=== PATIENT | female | born 1990 | race American Indian/Alaskan Native ===

== ENCOUNTER 2017-10-14 10:38 | Emergency (ER) | payer MEDICAID ==
--- NOTE | 2017-10-14 11:20 | Emergency Department Report ---
ED General Adult HPI - General Chief complaint: Back Pain/Injury Stated complaint: BACK/CHEST PAIN Time Seen by Provider: 10/14/17 10:56 Source: patient Mode of arrival: Ambulatory Limitations: No Limitations - History of Present Illness Initial comments: Patient is 27 years old female 1 para 0. Patient stated that she is demented herself to be 9 weeks. Patient stated that she had a urine test but normal blood tests or ultrasound done in no care so far. Patient presented to the ER complaining off back pain that radiated down to her groin area associated with his cramping but no vaginal bleeding or vaginal discharge. Patient denied any fever, vomiting or diarrhea. - Related Data Allergies Allergy/AdvReac Type Severity Reaction Status Date / Time moustapha Allergy Itching Verified 10/14/17 10:43 amoxicillin AdvReac Nausea Verified 10/14/17 10:43 ED Review of Systems ROS: Stated complaint: BACK/CHEST PAIN Other details as noted in HPI Comment: All other systems reviewed and negative Constitutional: denies: chills, fever Cardiovascular: denies: chest pain, palpitations, dyspnea on exertion, orthopnea Gastrointestinal: abdominal pain, nausea. denies: vomiting, diarrhea, constipation, hematemesis, melena, hematochezia Musculoskeletal: back pain ED Past Medical Hx - Past Medical History Previous Medical History?: No - Surgical History Past Surgical History?: No - Social History Smoking Status: Never Smoker Substance Use Type: None ED Physical Exam - General Limitations: No Limitations General appearance: alert, in no apparent distress - Head Head exam: Present: atraumatic, normocephalic, normal inspection - Eye Eye exam: Present: normal appearance - ENT ENT exam: Present: normal exam - Neck Neck exam: Present: normal inspection, full ROM. Absent: tenderness, meningismus, lymphadenopathy, thyromegaly - Respiratory Respiratory exam: Present: normal lung sounds bilaterally. Absent: respiratory distress, wheezes, rales, rhonchi, stridor, chest wall tenderness, accessory muscle use, decreased breath sounds, prolonged expiratory - Cardiovascular Cardiovascular Exam: Present: regular rate, normal rhythm, normal heart sounds - GI/Abdominal GI/Abdominal exam: Present: soft, normal bowel sounds. Absent: distended, tenderness, guarding, rebound, rigid, organomegaly, mass, bruit, pulsatile mass , hernia - Extremities Exam Extremities exam: Present: normal inspection, full ROM, normal capillary refill. Absent: tenderness, pedal edema, joint swelling, calf tenderness - Back Exam Back exam: Present: normal inspection, full ROM. Absent: tenderness, CVA tenderness (R), muscle spasm, paraspinal tenderness, vertebral tenderness, rash noted - Neurological Exam Neurological exam: Present: alert, oriented X3, CN II-XII intact, normal gait, reflexes normal - Skin Skin exam: Present: warm, intact, normal color ED Course Vital Signs 10/14/17 10:43 Temperature 98.4 F Pulse Rate 80 Respiratory 18 Rate Blood Pressure 148/94 O2 Sat by Pulse 98 Oximetry ED Medical Decision Making - Lab Data Result diagrams: 10/14/17 11:23 10/14/17 11:23 - Radiology Data Radiology results: report reviewed Referring Physician: KING MIRZA Patient Name: JOHN SAENZ Date of : 1990 Sex: Female Report Date: 2017-10-14 Report Status: [place] [address] Ultrasound Report Signed Patient: JOHN SAENZ MR#: [id number] : 1990 Acct:[id number] Age/Sex: 27 / F ADM Date: 10/14/17 Loc: ED Attending Dr: Ordering Physician: KING MIRZA Date of Service: 10/14/17 Procedure(s): US OB transvaginal Accession Number(s): [id number] cc: KING MIRZA FINAL REPORT EXAM: US OB TRANSVAGINAL HISTORY: abdominal pain: 9 weeks TECHNIQUE: Ob ultrasound evaluation of the pelvis using TRANSVAGINAL technique PRIORS: Transabdominal Ob ultrasound 10/14/2017 FINDINGS: A gestational sac is present in the endometrial cavity containing a pole. viability is documented with evidence of cardiac activity. pole crown-rump length: 31.5 mm heart rate: 167 beats per minute Average estimated gestational age by ultrasound: 10 weeks 0 days Estimated delivery date: 05/12/2018 The uterine echotexture is homogenous and without evidence of mass. No evidence of subchorionic hemorrhage. The adnexa are normal. There is no cul-de-sac free fluid. Nonspecific slightly hypoechoic lesion in the right ovary measures 19 mm. This may be a corpus luteum. IMPRESSION: Single viable intrauterine with the above parameters Transcribed By: BAL Dictated By: JO GARCIA MD Electronically Authenticated By: JO GARCIA MD Signed Date/Time: 10/14/171346 DD/ 46 TD/TT: 10/14/171346 Critical care attestation.: If time is entered above; I have spent that time in minutes in the direct care of this critically ill patient, excluding procedure time. ED Disposition Clinical Impression: Abdominal pain affecting , UTI (urinary tract infection) Disposition: - TO HOME OR SELFCARE Is pt being admited?: No Condition: Stable Instructions: Abdominal Pain in (ED), Urinary Tract Infection in Women (ED) Referrals: PRIMARY CARE, [Primary Care Provider] - 3-5 Days
[2017-10-14 11:46] LABS: Basophils % (Auto) 0.8 % (0.0-1.8); Eosinophils % (Auto) 0.2 % (0.0-4.3); Hematocrit 39.2 % (30.3-42.9); Lymphocytes # (Auto) 0.8 K/mm3 (1.2-5.4); Lymphocytes % (Auto) 27.5 % (13.4-35.0); Mean Corpuscular HGB Conc 33 % (30-34); Mean Corpuscular Hemoglobin 29 pg (28-32); Mean Corpuscular Volume 86 fl (79-97); Monocytes # (Auto) 0.5 K/mm3 (0.0-0.8); Monocytes % (Auto) 15.9 % (0.0-7.3); Platelet Count 199 K/mm3 (140-440); Red Blood Count 4.58 M/mm3 (3.65-5.03); Red Cell Distribution Width 13.4 % (13.2-15.2)
[2017-10-14 11:53] LABS: Bacteria,Urine 1+ /HPF (Negative); Bilirubin,Urine NEG (Negative); Blood,Urine NEG (Negative); Color,Urine Amber (Yellow); Mucus,Urine 3+ /HPF
[2017-10-14 11:59] LABS: BUN/Creatinine Ratio 13; Blood Urea Nitrogen 9 mg/dL (7-17); Calcium 9.2 mg/dL (8.4-10.2); Hemolysis Index 15
--- NOTE | 2017-10-14 13:52 | Ultrasound Report ---
FINAL REPORT EXAM: US OB TRANSVAGINAL HISTORY: abdominal pain: 9 weeks TECHNIQUE: Ob ultrasound evaluation of the pelvis using TRANSVAGINAL technique PRIORS: Transabdominal Ob ultrasound 10/14/2017 FINDINGS: A gestational sac is present in the endometrial cavity containing a pole. viability is documented with evidence of cardiac activity. pole crown-rump length: 31.5 mm heart rate: 167 beats per minute Average estimated gestational age by ultrasound: 10 weeks 0 days Estimated delivery date: 05/12/2018 The uterine echotexture is homogenous and without evidence of mass. No evidence of subchorionic hemorrhage. The adnexa are normal. There is no cul-de-sac free fluid. Nonspecific slightly hypoechoic lesion in the right ovary measures 19 mm. This may be a corpus luteum. IMPRESSION: Single viable intrauterine with the above parameters
--- NOTE | 2017-10-14 13:57 | Ultrasound Report ---
FINAL REPORT EXAM: US OB < = 14 WEEKS FETUS HISTORY: abdominal pain: 9 weeks TECHNIQUE: Ultrasound evaluation of the gravid uterus PRIORS: Transvaginal Ob ultrasound 10/14/2017 FINDINGS: A gestational sac is present in the endometrial cavity containing a pole. viability is documented with evidence of cardiac activity. pole crown-rump length: 31.5 mm heart rate: 167 and 168 beats per minute Average estimated gestational age by ultrasound: 10 weeks 0 days Estimated delivery date: 05/12/2018 The uterine echotexture is homogenous and without evidence of mass. No evidence of subchorionic hemorrhage. The adnexa are normal. There is no cul-de-sac free fluid. Nonspecific slightly hypoechoic lesion in the right ovary measures 19 mm, visible on comparison endovaginal imaging. This may be a corpus luteum. IMPRESSION: Single viable early intrauterine with the above parameters
[2017-10-14 15:00] VITALS: BP 134/72
== END 2017-10-14 14:58 | disposition home or self-care (01) ==
LOC: ED 10:38
DX: O23.41 Unspecified infection of urinary tract in pregnancy, first trimester (principal); Z3A.10 10 weeks gestation of pregnancy; Z88.1 Allergy status to other antibiotic agents; Z91.018 Allergy to other foods
CPT/HCPCS: 36415; 76801; 76817; 80048; 81001; 84702; 85025; 86900; 86901; 99284

== ENCOUNTER 2017-11-05 20:42 | Emergency (ER) | payer OTHER ==
[2017-11-05 21:49] LABS: Basophils % (Auto) 0.3 % (0.0-1.8); Eosinophils % (Auto) 0.1 % (0.0-4.3); Hematocrit 34.2 % (30.3-42.9); Hemoglobin 12.3 gm/dl (10.1-14.3); Lymphocytes # (Auto) 0.9 K/mm3 (1.2-5.4); Lymphocytes % (Auto) 15.8 % (13.4-35.0); Mean Corpuscular HGB Conc 36 % (30-34); Mean Corpuscular Hemoglobin 30 pg (28-32); Mean Corpuscular Volume 84 fl (79-97); Monocytes # (Auto) 0.6 K/mm3 (0.0-0.8); Platelet Count 194 K/mm3 (140-440); Red Blood Count 4.08 M/mm3 (3.65-5.03); Red Cell Distribution Width 13.7 % (13.2-15.2)
[2017-11-05 22:48] LABS: Bilirubin,Urine SM (Negative); Blood,Urine NEG (Negative); Color,Urine Amber (Yellow); Mucus,Urine 3+ /HPF
[2017-11-05 23:06] LABS: Ictotest,Urine Negative (Negative)
--- NOTE | 2017-11-06 01:43 | Emergency Department Report ---
ED HPI - General Chief complaint: Abdominal Pain Stated complaint: 12 WKS WITH ABD PAIN Time Seen by Provider: 11/06/17 01:33 Source: patient Mode of arrival: Ambulatory Limitations: No Limitations - History of Present Illness Initial comments: 27-year-old 12 week female presents with upper abdominal discomfort starting approximately 30-60 minutes after eating a hot dog for lunch 8 hours prior to arrival. Discomfort was initially crampy, achy, localized in the epigastrium, without radiation, moderate intensity, 5-6 out of 10. Seems a bit aggravated by her meal, not relieved by any particular measures, and has begun to subside spontaneously. She had some belching along with it, no nausea or vomiting, no fever or chills, and no lower abdominal discomfort, and thinks that she may simply had some indigestion, but wanted to get checked out to be sure that there was no problems with the . She has not had any symptoms of contractions, no flank pain, no lower back pain, no difficulty with urination, and at time of examination, all of patient's pain has subsided and she is resting comfortably. - Related Data Previous Rx's Medication Instructions Recorded Last Taken Type Nitrofurantoin [place]/M-Cryst 100 mg PO Q12HR #14 capsule 10/14/17 Unknown Rx [Macrobid CAP] Ondansetron [Zofran Odt] 4 mg PO Q8HR PRN #20 tab.rapdis 10/14/17 Unknown Rx Vit Calc,Iron,Folic 1 each PO DAILY #30 tablet 10/14/17 Unknown Rx [ Vitamins] Allergies Allergy/AdvReac Type Severity Reaction Status Date / Time moustapha Allergy Itching Verified 10/14/17 10:43 amoxicillin AdvReac Nausea Verified 10/14/17 10:43 ED Review of Systems ROS: Stated complaint: 12 WKS WITH ABD PAIN Other details as noted in HPI Comment: All other systems reviewed and negative Constitutional: denies: chills, fever Respiratory: denies: cough, shortness of breath, wheezing Cardiovascular: denies: chest pain, palpitations Endocrine: no symptoms reported Gastrointestinal: abdominal pain (in epigastrium, achy and crampy). denies: nausea, vomiting, diarrhea Genitourinary: denies: urgency, dysuria Musculoskeletal: denies: back pain, joint swelling, arthralgia Neurological: denies: headache, weakness, paresthesias ED Past Medical Hx - Past Medical History Previous Medical History?: No - Surgical History Past Surgical History?: No - Social History Smoking Status: Never Smoker Substance Use Type: None - Medications Home Medications: Home Medications Medication Instructions Recorded Confirmed Last Taken Type Nitrofurantoin [place]/M-Cryst 100 mg PO Q12HR #14 capsule 10/14/17 Unknown Rx [Macrobid CAP] Ondansetron [Zofran Odt] 4 mg PO Q8HR PRN #20 tab.rapdis 10/14/17 Unknown Rx Vit Calc,Iron,Folic 1 each PO DAILY #30 tablet 10/14/17 Unknown Rx [ Vitamins] ED Physical Exam - General Limitations: No Limitations General appearance: alert, in no apparent distress - Head Head exam: Present: atraumatic, normocephalic - ENT ENT exam: Present: normal exam, mucous membranes moist - Neck Neck exam: Present: normal inspection, full ROM. Absent: tenderness - Respiratory Respiratory exam: Present: normal lung sounds bilaterally. Absent: respiratory distress, wheezes, rales, rhonchi - Cardiovascular Cardiovascular Exam: Present: regular rate, normal heart sounds - GI/Abdominal GI/Abdominal exam: Present: soft, normal bowel sounds, other (gravid, midway below level of umbilicus). Absent: tenderness, guarding, rebound - Rectal Rectal exam: Present: deferred - Extremities Exam Extremities exam: Present: normal inspection, full ROM. Absent: tenderness, pedal edema - Back Exam Back exam: Present: normal inspection. Absent: tenderness, CVA tenderness (R), CVA tenderness (L) - Neurological Exam Neurological exam: Present: alert, oriented X3, CN II-XII intact. Absent: motor sensory deficit - Skin Skin exam: Present: warm, dry, intact ED Course Vital Signs 11/05/17 20:45 Temperature 36.9 C Pulse Rate 83 Respiratory 18 Rate Blood Pressure 170/97 O2 Sat by Pulse 96 Oximetry ED Medical Decision Making - Lab Data Result diagrams: 11/05/17 21:28 - Radiology Data interpreted by me: Transabdominal ultrasound shows presence of fetus, within normal-appearing uterus with normal amount of amniotic fluid, no evidence of bleeding, heart rate noted at 152 and one projection, and 166 bpm and other production. Unremarkable examination - Medical Decision Making Patient had an isolated episode of dyspepsia after eating a hot dog, which has subsided by the time of examination, patient is feeling back to baseline, has an unremarkable urinalysis, which likely shows mild contamination, benign examination, and on my examination abdominal ultrasound is unremarkable, showing normal heart tones, normal fetus, no evidence of hemorrhage or free fluid. Critical Care Time: No Critical care attestation.: If time is entered above; I have spent that time in minutes in the direct care of this critically ill patient, excluding procedure time. ED Disposition Clinical Impression: Dyspepsia Qualifiers: Weeks of gestation: 12 weeks Qualified Code(s): Z3A.12 - 12 weeks gestation of Disposition: TO HOME OR SELFCARE Is pt being admited?: No Does the pt Need Aspirin: No Condition: Stable Instructions: Chronic Indigestion (ED) Additional Instructions: We recommend eating a bland diet, limiting her intake of fatty foods such as hot dogs, if he have recurrent episodes such as tonight, during her . Have recheck with your Dr. Calix as routinely scheduled. Recheck if you have any recurrent symptoms. Referrals: PRIMARY CARE, [Referring] - 3-5 Days Time of Disposition: 01:46
[2017-11-06 02:09] VITALS: BP 126/84
--- NOTE | 2017-11-06 02:39 | Ultrasound Report ---
FINAL REPORT PROCEDURE: US OB < = 14 WEEKS FETUS TECHNIQUE: Real-time transabdominal sonography of the uterus, placenta, amniotic fluid, adnexa, and fetus was performed with image documentation. Measurements were obtained to determine age/size. M-mode Doppler was used to document heartbeat. CPT 88903 HISTORY: 12 weeks gest abd pain COMPARISON: No prior studies are available for comparison. FINDINGS: CRL: 70.9 mm, which corresponds to a gestational age of: 13 weeks, 2 days. Yolk Sac: Normal. Embryonic Cardiac Activity: 166 beats per minute Gestational Sac: Normal. Amniotic fluid: Normal. Cervix: Normal. Right Ovary: Normal. Left Ovary: Normal. Estimated delivery date: 05/12/2018 Uterus and adnexa: Normal. IMPRESSION: Single live intrauterine gestation at approximately 13 weeks and 2 days. EDC by US 05/12/2018
== END 2017-11-06 02:10 | disposition home or self-care (01) ==
LOC: ED 20:42
DX: O26.891 Other specified pregnancy related conditions, first trimester (principal); R10.13 Epigastric pain; Z3A.12 12 weeks gestation of pregnancy; Z88.1 Allergy status to other antibiotic agents; Z91.02 Food additives allergy status; Z79.899 Other long term (current) drug therapy
CPT/HCPCS: 36415; 76801; 81001; 84702; 85025

== ENCOUNTER 2018-04-26 10:40 | Inpatient (IN) | payer OTHER ==
[2018-04-26] MEDS ORDERED: NARCAN 0.4 MG/1 ML IV PRN (11:36)
[2018-04-26] MEDS ORDERED: STADOL IV PRN (11:36)
[2018-04-26] MEDS ORDERED: BRETHINE SUB-Q PRN (11:36)
[2018-04-26] MEDS ORDERED: PHENERGAN PR PRN (11:36)
[2018-04-26] MEDS ORDERED: AMPICILLIN/NS 2 GM/100 ML 2 GM/100 ML BAG IV ONE (11:36)
[2018-04-26] MEDS ORDERED: XYLOCAINE 2% INFILTRATI ONE ×2 (11:36→22:47)
[2018-04-26] MEDS ORDERED: BRETHINE IVP PRN (11:36)
[2018-04-26] MEDS ORDERED: MINERAL OIL PO PRN ×2 (11:36→22:47)
[2018-04-26] MEDS ORDERED: ZOFRAN IV PRN (11:36)
--- NOTE | 2018-04-26 11:44 | History and Physical Report ---
History of Present Illness Date of examination: 04/26/18 Date of admission: 04/26/18 10:40 Chief complaint: recommended IOl for PIH ( mild) History of present illness: This is a 28 yo G [id number] at 37+3 weeks was admitted for IOL secondary to PIH recommneded by [facility]. patient is a patient of [facility] and established care at 10 weeks. She is morbidly obese, rubella non immune, GBS + LGSIL 6 weeks PP f/u. GHTN on aldomet 500 mg bid. patient has been non compliant and recommended delivery today. Past History Past Medical History: no pertinent history Past Surgical History: no surgical history Family/Genetic History: none Social history: single - Obstetrical History Expected Date of Delivery: 05/14/18 Actual Gestation: 37 Week(s) 3 Day(s) : 2 Para: 0 Hx # Term Pregnancies: 0 Number of Pregnancies: 0 Spontaneous Abortions: 0 Induced : 1 Number of Living Children: 0 Medications and Allergies Allergies Allergy/AdvReac Type Severity Reaction Status Date / Time moustapha Allergy Itching Verified 10/14/17 10:43 amoxicillin AdvReac Nausea Verified 10/14/17 10:43 Home Medications Medication Instructions Recorded Confirmed Last Taken Type Nitrofurantoin [place]/M-Cryst 100 mg PO Q12HR #14 capsule 10/14/17 Unknown Rx [Macrobid CAP] Ondansetron [Zofran Odt] 4 mg PO Q8HR PRN #20 tab.rapdis 10/14/17 Unknown Rx Vit Calc,Iron,Folic 1 each PO DAILY #30 tablet 10/14/17 Unknown Rx [ Vitamins] Review of Systems All systems: negative - Vital Signs Vital signs: Vital Signs Pulse Pulse Ox 89 99 04/26/18 11:32 04/26/18 11:32 Temp Pulse Resp BP Pulse Ox 78 136/87 99 04/26/18 11:37 04/26/18 11:36 04/26/18 11:37 - Physical Exam Breasts: Positive: normal Cardiovascular: Regular rate, Normal S1 Lungs: Positive: Clear to auscultation, Normal air movement Abdomen: Positive: normal appearance, soft, normal bowel sounds. Negative: distention, tenderness, guarding Genitourinary (Female): Positive: normal external genitalia, normal perenium Vulva: both: normal Vagina: Positive: normal moisture Uterus: Positive: normal size, normal contour Anus/Rectum: Positive: normal perianal skin Extremities: Positive: normal Deep Tendon Reflex Grade: Normal +2 - Obstetrical FHR: category 1 Cervical Dilatation: 1 Cervical Effacement Percentage: 60 station: -3 Uterine Contraction Pattern: Irregular Uterine Tone Measurement Phase: Contraction Uterine Contraction Intensity: Mild Results All other labs normal. Assessment and Plan A/P HD#1 Mild preeclampsia IOL with cervidil offer epidural close monitor of VS PIH labs expect vaginal delivery
[2018-04-26] MEDS ORDERED: PITOCin/NS 30 UNIT/500ML 30 UNITS/500 ML BAG IV SCH ×3 (12:00→23:00)
[2018-04-26] MEDS ORDERED: PITOCin/NS 20 UNIT/1000ML DRIP 20 UNITS/1,000 ML BAG IV SCH (12:00)
[2018-04-26 13:24] LABS: Hematocrit 34.3 % (30.3-42.9); Hemoglobin 11.6 gm/dl (10.1-14.3); Mean Corpuscular HGB Conc 34 % (30-34); Mean Corpuscular Volume 85 fl (79-97); Platelet Count 219 K/mm3 (140-440); Red Blood Count 4.04 M/mm3 (3.65-5.03); Red Cell Distribution Width 13.3 % (13.2-15.2)
[2018-04-26 13:47] LABS: Alanine Aminotransferase 8 units/L (7-56); Uric Acid 3.9 mg/dL (3.5-7.6)
[2018-04-26] MEDS ORDERED: CERVIDIL VG ONE (18:18)
[2018-04-26 18:20] LABS: Bacteria,Urine 1+ /HPF (Negative); Bilirubin,Urine NEG (Negative); Blood,Urine NEG (Negative); Color,Urine Yellow (Yellow); Protein,Urine <15 mg/dL mg/dL (Negative); Urobilinogen,Urine < 2.0 mg/dL (<2.0)
[2018-04-26] MEDS: SUBLIMAZE IV PRN (22:35)
[2018-04-26] MEDS: LACTATED RINGERS 1,000 ML IV SCH (22:35)
[2018-04-26 23:37] LABS: Hematocrit 32.9 % (30.3-42.9); Hemoglobin 11.3 gm/dl (10.1-14.3)
[2018-04-26] MEDS: CLEOCIN 900 MG/50 mL 900 MG/50 ML BAG IV SCH (23:58)
[2018-04-27] MEDS ORDERED: AMBIEN PO PRN ×2 (01:01→01:03)
--- NOTE | 2018-04-27 08:28 | Progress Note ---
Assessment and Plan - Patient Problems (1) Preeclampsia Current Visit: Yes Status: Acute Plan to address problem: initiate pitocin Subjective - Subjective Date of service: 04/27/18 Interval history: Patient undergoing induction. Cervidil being removed. Will initiate pitocin Patient reports: movement normal, contractions Objective - Vital Signs Vital Signs: Vital Signs - 12hr 04/26/18 04/26/18 04/26/18 20:31 21:02 22:31 Pulse Rate 82 81 75 Respiratory Rate Blood Pressure 140/88 146/82 141/95 O2 Sat by Pulse Oximetry 04/26/18 04/26/18 04/26/18 22:35 23:01 23:05 Pulse Rate 77 Respiratory 18 18 Rate Blood Pressure 152/83 O2 Sat by Pulse Oximetry 04/27/18 04/27/18 04/27/18 00:31 01:01 01:31 Pulse Rate 85 77 70 Respiratory Rate Blood Pressure 142/81 145/84 146/77 O2 Sat by Pulse Oximetry 04/27/18 04/27/18 04/27/18 02:32 02:35 02:40 Pulse Rate 85 82 Respiratory 18 Rate Blood Pressure O2 Sat by Pulse 93 89 Oximetry 04/27/18 04/27/18 04/27/18 02:45 02:46 02:50 Pulse Rate 81 76 84 Respiratory Rate Blood Pressure O2 Sat by Pulse 94 94 94 Oximetry 04/27/18 04/27/18 04/27/18 02:52 02:55 02:58 Pulse Rate 79 80 79 Respiratory Rate Blood Pressure O2 Sat by Pulse 94 95 94 Oximetry 04/27/18 04/27/18 04/27/18 03:00 03:01 03:03 Pulse Rate 71 76 73 Respiratory Rate Blood Pressure 126/61 O2 Sat by Pulse 95 94 Oximetry 04/27/18 04/27/18 04/27/18 03:05 03:10 03:15 Pulse Rate 74 71 66 Respiratory Rate Blood Pressure O2 Sat by Pulse 96 93 94 Oximetry 04/27/18 04/27/18 04/27/18 03:19 03:20 03:25 Pulse Rate 73 67 73 Respiratory Rate Blood Pressure O2 Sat by Pulse 93 96 95 Oximetry 04/27/18 04/27/18 04/27/18 03:26 03:30 03:31 Pulse Rate 72 73 81 Respiratory Rate Blood Pressure 111/58 O2 Sat by Pulse 94 95 Oximetry 04/27/18 04/27/18 04/27/18 03:33 03:35 03:40 Pulse Rate 77 78 70 Respiratory Rate Blood Pressure O2 Sat by Pulse 94 95 96 Oximetry 04/27/18 04/27/18 04/27/18 03:45 03:50 03:55 Pulse Rate 72 73 74 Respiratory Rate Blood Pressure O2 Sat by Pulse 96 96 96 Oximetry 04/27/18 04/27/18 04/27/18 04:00 04:05 04:10 Pulse Rate 69 69 70 Respiratory Rate Blood Pressure O2 Sat by Pulse 96 95 96 Oximetry 04/27/18 04/27/18 04/27/18 04:15 04:20 04:25 Pulse Rate 72 66 66 Respiratory Rate Blood Pressure O2 Sat by Pulse 96 96 96 Oximetry 04/27/18 04/27/18 04/27/18 04:30 04:35 04:40 Pulse Rate 72 69 68 Respiratory Rate Blood Pressure O2 Sat by Pulse 97 97 96 Oximetry 04/27/18 04/27/18 04/27/18 04:45 04:50 04:55 Pulse Rate 66 71 66 Respiratory Rate Blood Pressure O2 Sat by Pulse 96 96 96 Oximetry 04/27/18 04/27/18 04/27/18 05:00 05:05 05:20 Pulse Rate 71 62 66 Respiratory Rate Blood Pressure O2 Sat by Pulse 97 96 98 Oximetry 04/27/18 04/27/18 04/27/18 05:25 05:30 05:35 Pulse Rate 58 L 63 61 Respiratory Rate Blood Pressure O2 Sat by Pulse 97 97 97 Oximetry 04/27/18 04/27/18 04/27/18 05:40 05:45 05:50 Pulse Rate 70 66 63 Respiratory Rate Blood Pressure O2 Sat by Pulse 98 98 98 Oximetry 04/27/18 04/27/18 04/27/18 05:55 06:00 06:05 Pulse Rate 60 61 64 Respiratory Rate Blood Pressure O2 Sat by Pulse 97 96 98 Oximetry 04/27/18 04/27/18 04/27/18 06:10 08:19 08:20 Pulse Rate 69 56 L 55 L Respiratory Rate Blood Pressure 141/82 O2 Sat by Pulse 97 95 Oximetry 04/27/18 08:24 Pulse Rate 57 L Respiratory Rate Blood Pressure O2 Sat by Pulse 94 Oximetry - Labs Labs: Abnormal Labs 04/26/18 12:42 Creatinine 0.6 L Laboratory Results - last 24 hr 04/26/18 04/26/18 04/26/18 12:42 12:42 12:42 WBC 10.1 RBC 4.04 Hgb 11.6 Hct 34.3 MCV 85 MCH 29 MCHC 34 RDW 13.3 Plt Count 219 Creatinine 0.6 L Estimated GFR > 60 Uric Acid 3.9 AST 11 ALT 8 Lactate Dehydrogenase 111 Urine Color Urine Turbidity Urine pH Ur Specific [place] Urine Protein Urine Glucose (UA) Urine Ketones Urine Blood Urine Nitrite Urine Bilirubin Urine Urobilinogen Ur Leukocyte Esterase Urine WBC (Auto) Urine RBC (Auto) U Epithel Cells (Auto) Urine Bacteria (Auto) Blood Type O POSITIVE Antibody Screen Negative 04/26/18 04/26/18 17:44 23:05 WBC RBC Hgb 11.3 Hct 32.9 MCV MCH MCHC RDW Plt Count Creatinine Estimated GFR Uric Acid AST ALT Lactate Dehydrogenase Urine Color Yellow Urine Turbidity Clear Urine pH 7.0 Ur Specific [place] 1.009 Urine Protein <15 mg/dl Urine Glucose (UA) Neg Urine Ketones Tr Urine Blood Neg Urine Nitrite Neg Urine Bilirubin Neg Urine Urobilinogen < 2.0 Ur Leukocyte Esterase Lg Urine WBC (Auto) 4.0 Urine RBC (Auto) 1.0 U Epithel Cells (Auto) 7.0 Urine Bacteria (Auto) 1+ Blood Type Antibody Screen
[2018-04-27] MEDS: CLEOCIN 900 MG/50 mL 900 MG/50 ML BAG IV SCH (08:36)
[2018-04-27] MEDS: SUBLIMAZE IV PRN (08:37)
--- NOTE | 2018-04-27 10:48 | Procedure Note ---
OB Delivery Note - Delivery Date of Delivery: 04/27/18 Surgeon: IGOR POWELL Estimated blood loss: 100cc - Vaginal Delivery presentation: vertex Intrapartum events: precipitous labor- <3hr Delivery augmentation: rupture of membranes Delivery monitor: external FHT, external uterine, internal FHT, internal uterine Route of delivery: Delivery placenta: spontaneous Delivery cord: 3 umbilical vessels Episiotomy: none Delivery laceration: 1st degree Anesthesia: none Delivery comments: Patient had a precipitous delivery of a liveborn female with apgars of 8/9 weight 5lbs 6oz. The infant delivered spontaneously in the bed. The placenta delivered intact with a 3VC. A first degree laceration was noted and left unrepaired. EBL 100ml - Infant A at 1 minute: 8 at 5 minutes: 9 Infant Gender: Female (weight 5lbs 6oz)
[2018-04-27] MEDS ORDERED: MAGNESIUM SULFATE 40GM/1000ML 40 GM/1,000 ML BAG IV SCH (11:00)
[2018-04-27] MEDS ORDERED: MAGNESIUM SULFATE 4GM/100ML 4 GM/100 ML BAG IV ONE (12:03)
[2018-04-27] MEDS: APRESOLINE IV PRN ×2 (20:37→21:46)
[2018-04-27] MEDS ORDERED: VICKS SINEX NS PRN (22:33)
[2018-04-28] MEDS: LACTATED RINGERS 1,000 ML IV SCH (03:09)
--- NOTE | 2018-04-28 08:24 | Progress Note ---
Assessment and Plan A/P PPD1 Mild preeclampsia on mag for 24hr up at 100p transfer to [facility] at 100p continue PP care Subjective - Subjective Date of service: 04/28/18 Principal diagnosis: s/p on mag for pree Interval history: This is a 28 yo G [id number] at 37+3 weeks was admitted for IOL secondary to PIH recommneded by MFM. patient is a patient of [facility] and established care at 10 weeks. She is morbidly obese, rubella non immune, GBS + LGSIL 6 weeks PP f/u. GHTN on aldomet 500 mg bid. patient has been non compliant and recommended delivery today. Patient reports: appetite normal, voiding normally, pain well controlled, flatus, ambulating normally : doing well Objective - Vital Signs Latest vital signs: Vital Signs Temp Pulse Resp BP BP Pulse Ox 04/28/18 07:54 79 140/90 04/28/18 07:24 82 135/88 97 04/28/18 05:54 72 128/77 04/28/18 05:50 97.8 F 18 04/28/18 05:44 75 138/84 04/28/18 03:23 74 104/71 04/28/18 03:22 98.1 F 16 04/27/18 23:58 98.4 F 154/81 04/27/18 23:55 74 153/81 04/27/18 22:44 82 99 04/27/18 21:54 80 164/79 04/27/18 21:46 74 176/80 04/27/18 21:45 74 176/80 04/27/18 21:42 70 175/107 04/27/18 20:54 74 173/97 04/27/18 20:37 71 171/108 04/27/18 20:36 71 171/108 04/27/18 20:14 67 171/104 04/27/18 19:56 97.3 F L 154/101 04/27/18 19:55 62 154/101 04/27/18 19:54 65 164/101 04/27/18 15:38 59 L 140/69 04/27/18 15:23 70 155/70 04/27/18 14:53 61 151/89 04/27/18 14:38 66 143/90 04/27/18 14:23 65 135/78 04/27/18 14:08 66 144/84 04/27/18 13:53 71 140/82 04/27/18 13:38 69 142/81 04/27/18 13:23 68 169/106 04/27/18 13:08 51 L 141/80 04/27/18 12:53 67 139/75 04/27/18 12:38 52 L 138/85 04/27/18 12:23 51 L 141/84 04/27/18 12:21 48 L 143/82 04/27/18 11:53 58 L 92/46 04/27/18 11:38 59 L 114/57 04/27/18 11:23 54 L 120/65 04/27/18 11:08 55 L 115/56 04/27/18 10:52 67 111/58 04/27/18 10:49 68 108/53 04/27/18 10:48 67 106/55 04/27/18 10:46 71 111/54 04/27/18 10:26 60 98 04/27/18 10:25 69 151/74 93 04/27/18 10:21 77 97 04/27/18 10:16 65 99 04/27/18 10:11 57 L 99 04/27/18 10:06 50 L 99 04/27/18 10:04 66 93 04/27/18 10:01 63 98 04/27/18 09:56 63 100 04/27/18 09:51 57 L 91 04/27/18 09:50 53 L 94 04/27/18 09:46 61 99 04/27/18 09:41 56 L 95 04/27/18 09:37 57 L 94 04/27/18 09:36 55 L 95 04/27/18 09:31 60 97 04/27/18 09:26 70 98 04/27/18 09:21 66 95 04/27/18 09:16 76 95 04/27/18 09:13 60 94 04/27/18 09:11 58 L 95 04/27/18 09:06 58 L 95 04/27/18 09:01 54 L 96 04/27/18 08:56 59 L 95 04/27/18 08:51 63 96 04/27/18 08:49 57 L 94 04/27/18 08:46 57 L 93 04/27/18 08:41 58 L 92 04/27/18 08:24 57 L 94 Intake and Output 04/27/18 04/28/18 04/28/18 23:59 07:59 15:59 Output Total 1999 999 Balance -1999 -999 Output: Urine 1999 999 Indwelling Catheter 1999 999 Other: Total, Output Amount 1999 300 - Exam Breasts: Present: normal Cardiovascular: Present: Regular rate, Normal S1 Lungs: Present: Clear to auscultation, Normal air movement Abdomen: Present: normal appearance, soft, normal bowel sounds. Absent: distention, tenderness, guarding Vulva: both: normal Uterus: Present: normal, firm, fundal height below umbilicus. Absent: bogginess Extremities: Present: normal Deep Tendon Reflex Grade: Normal +2 - Labs Labs: Abnormal lab results 04/27/18 Range/Units 19:33 Magnesium 4.30 H (1.7-2.3) mg/dL
[2018-04-28] MEDS ORDERED: BENADRYL PO PRN (12:40)
[2018-04-28] MEDS ORDERED: TORADOL IV PRN (12:40)
[2018-04-28] MEDS ORDERED: TUCKS PAD TP PRN (12:40)
[2018-04-28] MEDS ORDERED: MILK OF MAGNESIA PO PRN (12:40)
[2018-04-28] MEDS ORDERED: LANSINOH TP PRN (12:40)
[2018-04-28] MEDS ORDERED: PHENERGAN PR PRN (12:40)
[2018-04-28] MEDS ORDERED: PERCOCET 5/325 PO PRN (12:40)
[2018-04-28] MEDS ORDERED: DULCOLAX PR PRN (12:40)
[2018-04-28] MEDS ORDERED: TYLENOL PO PRN (12:40)
[2018-04-28] MEDS ORDERED: NORCO 5/325 PO PRN (12:40)
[2018-04-28] MEDS ORDERED: ZOFRAN IV PRN (12:40)
[2018-04-28] MEDS ORDERED: PHENERGAN PO PRN (12:40)
[2018-04-28] MEDS ORDERED: ANUCORT-HC PR PRN (12:40)
[2018-04-28] MEDS ORDERED: SODIUM CHLORIDE FLUSH SYRINGE 10 ML IV NR (13:00)
[2018-04-28] MEDS: IBUPROFEN PO SCH ×2 (19:03→22:29)
[2018-04-28] MEDS ORDERED: COLACE PO SCH (22:00)
[2018-04-29] MEDS: IBUPROFEN PO SCH (05:53)
--- NOTE | 2018-04-29 08:39 | Progress Note ---
Assessment and Plan A/P PPD2 Mild preeclampsia s/p mag BP 130-140/70-80s d/c home with f/u in 1 weeks for BP check Subjective - Subjective Date of service: 04/29/18 Principal diagnosis: s/p on mag for pree Interval history: This is a 28 yo G [id number] at 37+3 weeks was admitted for IOL secondary to PIH recommneded by MFM. patient is a patient of [facility] and established care at 10 weeks. She is morbidly obese, rubella non immune, GBS + LGSIL 6 weeks PP f/u. GHTN on aldomet 500 mg bid. patient has been non compliant and recommended delivery today. Patient reports: appetite normal, voiding normally, pain well controlled, flatus, ambulating normally : doing well Objective - Vital Signs Latest vital signs: Vital Signs Temp Pulse Resp BP BP BP Pulse Ox 04/29/18 04:15 98.7 F 68 18 132/77 04/29/18 00:00 98.7 F 82 18 136/88 04/28/18 23:20 98.8 F 78 16 124/42 04/28/18 16:15 98.8 F 82 20 145/92 04/28/18 14:33 98.8 F 74 16 136/76 96 04/28/18 13:56 96 H 139/93 04/28/18 13:48 98.6 F 92 H 16 124/79 96 04/28/18 10:17 83 139/71 94 04/28/18 10:16 85 96 04/28/18 09:25 68 16 136/90 96 Intake and Output 04/28/18 04/29/18 04/29/18 23:59 07:59 15:59 Intake Total 600 Balance 600 Intake: Intake, Free Water 600 - Exam Breasts: Present: normal Cardiovascular: Present: Regular rate, Normal S1 Lungs: Present: Clear to auscultation, Normal air movement Abdomen: Present: normal appearance, soft, normal bowel sounds. Absent: distention, tenderness, guarding Vulva: both: normal Uterus: Present: normal, firm, fundal height below umbilicus. Absent: bogginess, tenderness Extremities: Present: normal Deep Tendon Reflex Grade: Normal +2
--- NOTE | 2018-04-29 08:40 | Discharge Summary ---
Providers - Providers Date of Admission: 04/26/18 10:40 Date of discharge: 04/29/18 Attending physician: CARLOS SOLANO MD Primary care physician: IGOR POWELL Hospitalization Reason for admission: induction of labor, other (PIH mild) Delivery: Episiotomy: none Laceration: 1st degree Incision: normal Other procedures: none complications: none Discharge diagnosis: IUP at term delivered [place] baby: female Hospital course: Patient was admitted for IOL for PIH. She delivered a viable female via . She was given 24hr of mag. she did well PP day 2 and d/c home with f/u in clinic for BP check. Condition at discharge: Good Disposition: DC-01 TO HOME OR SELFCARE Plan - Discharge Medications Prescriptions: Ferrous Sulfate 325 mg PO BID #60 tablet. Ibuprofen [Motrin] 600 mg PO Q8H PRN #30 tablet PRN Reason: Pain oxyCODONE /ACETAMINOPHEN [Percocet 5/325] 1 tab PO Q6HR PRN #30 tablet PRN Reason: Pain - Provider Discharge Summary Additional instructions: [] Smoking cessation referral if applicable(refer to patient education folder for contact #) [] Refer to [facility] Booklet Call your doctor immediately for: * Fever > 100.5 * Heavy vaginal bleeding ( >1 pad per hour) * Severe persistent headache * Shortness of breath * Reddened, hot, painful area to leg or breast * Drainage or odor from incision. * Keep incision clean and dry at all times and follow doctor's instructions regarding bathing/showering - Follow up plan Follow up: IGOR POWELL MD [Primary Care Provider] - 7 Days
[2018-04-29] MEDS ORDERED: PRENATAL VITAMIN PO SCH (10:00)
[2018-04-29] MEDS ORDERED: BOOSTRIX IM ONE (12:40)
[2018-04-29] MEDS ORDERED: M-M-R II VACCINE SUB-Q ONE (12:40)
[2018-04-30 11:26] VITALS: BP 138/78
== END 2018-04-29 18:00 | disposition home or self-care (01) | DRG 774 ==
LOC: LD 10:40 → OB 04-28 16:15
PROVIDERS: ADMIT Obstetrics & Gynecology; ATTEND Obstetrics & Gynecology
PROC: 10E0XZZ Delivery of Products of Conception, External Approach (ICD-10-PCS; principal; 2018-04-27)
PROC: 3E0234Z Introduction of Serum, Toxoid and Vaccine into Muscle, Percutaneous Approach (ICD-10-PCS; 2018-04-29)
DX: O11.4 Pre-existing hypertension with pre-eclampsia, complicating childbirth (principal); O70.0 First degree perineal laceration during delivery; O99.214 Obesity complicating childbirth; E66.01 Morbid (severe) obesity due to excess calories; O99.824 Streptococcus B carrier state complicating childbirth; O62.3 Precipitate labor; Z3A.37 37 weeks gestation of pregnancy; Z37.0 Single live birth; Z88.1 Allergy status to other antibiotic agents; Z79.899 Other long term (current) drug therapy; Z23 Encounter for immunization
CPT/HCPCS: 36415; 59200; 81001; 82565; 83615; 83735; 84450; 84460; 84550; 85014; 85018; 85027; 86592; 86850; 86900; 86901; G0378; J0360; J0595; J2405; J2590; J3010; J3475; J7120

== ENCOUNTER 2021-04-04 15:19 | Emergency (ER) | payer SELFPAY ==
[2021-04-04] MEDS ORDERED: cloNIDine 0.2 MG TAB PO ONE (15:46)
--- NOTE | 2021-04-04 15:53 | Emergency Department Report ---
HPI - General Chief Complaint: High BP Time Seen by Provider: 04/04/21 15:34 - HPI HPI: MSE 5 The patient is a 31-year-old female presenting with chief complaint of hypertension and chest pain. The patient states her symptoms began yesterday as she noticed soreness in her left neck and shoulder. The patient initially thought she may have slept in a bad position but later she noticed soreness in the substernal chest as well. The patient states today she felt slightly dizzy while driving and eventually called EMS. Patient found to be hypertensive with a systolic of 170. The patient states EMS was going to take her to [facility] so she refused and drove herself to this ED. Patient denies shortness of breath, nausea/vomiting or diaphoresis. Patient currently denies dizziness or headache. ED Past Medical Hx - Past Medical History Hx Hypertension: No (Preeclampsia) - Surgical History Past Surgical History?: No - Family History Family history: no significant - Social History Smoking Status: Never Smoker Substance Use Type: None (Denies illicit drug use) - Medications Home Medications: Home Medications Medication Instructions Recorded Confirmed Last Taken Type Vit Calc,Iron,Folic 1 each PO DAILY #30 tablet 10/14/17 04/27/18 1 Month Ago Rx [ Vitamins] ~03/27/18 Ferrous Sulfate 325 mg PO BID #60 tablet. 04/28/18 Unknown Rx Ibuprofen [Motrin] 600 mg PO Q8H PRN #30 tablet 04/28/18 Unknown Rx oxyCODONE /ACETAMINOPHEN [Percocet 1 tab PO Q6HR PRN #30 tablet 04/28/18 Unknown Rx 5/325] amLODIPine 5 mg PO DAILY #90 tab 04/04/21 Unknown Rx ED Review of Systems ROS: Stated complaint: CHEST DISCOFORT, ELEVATED B/P Other details as noted in HPI Constitutional: denies: diaphoresis Eyes: denies: eye pain ENT: denies: throat pain Respiratory: denies: shortness of breath Cardiovascular: chest pain Endocrine: no symptoms reported Gastrointestinal: denies: nausea, vomiting Genitourinary: denies: dysuria Musculoskeletal: myalgia Neurological: denies: headache Physical Exam - Physical Exam Vital Signs: Vital Signs 04/04/21 04/04/21 04/04/21 16:34 18:17 21:01 Pulse Rate 84 89 75 Respiratory 18 18 Rate Blood Pressure 155/116 Blood Pressure 173/94 172/116 [Left] O2 Sat by Pulse 100 Oximetry Physical Exam: GENERAL: The patient is well-developed well-nourished female lying on stretcher not appearing to be in acute distress. [] HEENT: Normocephalic. Atraumatic. Extraocular motions are intact. Patient has moist mucous membranes. NECK: Supple. No meningitic signs are noted. Trachea midline CHEST/LUNGS: Clear to auscultation. There is no respiratory distress noted. HEART/CARDIOVASCULAR: Regular. There is no tachycardia. There is no gallop rub or murmur. ABDOMEN: Abdomen is soft, nontender. Patient has normal bowel sounds. There is no abdominal distention. SKIN: There is no rash. There is no edema. There is no diaphoresis. NEURO: The patient is awake, alert, and oriented. The patient is cooperative. The patient has no focal neurologic deficits. The patient has normal speech. GCS 15. Cranial nerves II through XII grossly intact MUSCULOSKELETAL: There is no CVA tenderness bilaterally. There is no evidence of acute injury. ED Medical Decision Making - Lab Data Result diagrams: 04/04/21 15:54 04/04/21 15:54 Laboratory Tests 04/04/21 04/04/21 04/04/21 15:54 15:54 15:54 WBC 3.6 L RBC 4.77 Hgb 13.4 Hct 40.2 MCV 84 MCH 28 MCHC 33 RDW 14.1 Plt Count 199 Lymph % (Auto) 26.9 [place] % (Auto) 6.4 Eos % (Auto) 0.2 Baso % (Auto) 0.8 Lymph # (Auto) 1.0 L [place] # (Auto) 0.2 Eos # (Auto) 0.0 Baso # (Auto) 0.0 Seg Neutrophils % 65.7 Seg Neutrophils # 2.4 D-Dimer Sodium 135 L Potassium 4.4 Chloride 102.0 Carbon Dioxide 22 Anion Gap 15 BUN 10 Creatinine 0.8 Estimated GFR > 60 BUN/Creatinine Ratio 13 Glucose 83 Calcium 9.6 Total Creatine Kinase 98 CK-MB (CK-2) < 1.0 CK-MB (CK-2) Rel Index 1.0 Troponin T < 0.010 TSH 0.870 Free T4 1.20 HCG, Qual 04/04/21 04/04/21 15:54 15:54 WBC RBC Hgb Hct MCV MCH MCHC RDW Plt Count Lymph % (Auto) [place] % (Auto) Eos % (Auto) Baso % (Auto) Lymph # (Auto) [place] # (Auto) Eos # (Auto) Baso # (Auto) Seg Neutrophils % Seg Neutrophils # D-Dimer 213.75 Sodium Potassium Chloride Carbon Dioxide Anion Gap BUN Creatinine Estimated GFR BUN/Creatinine Ratio Glucose Calcium Total Creatine Kinase CK-MB (CK-2) CK-MB (CK-2) Rel Index Troponin T TSH Free T4 HCG, Qual Negative - EKG Data -: EKG Interpreted by Me EKG shows normal: sinus rhythm Rate: normal - EKG Data When compared to previous EKG there are: previous EKG unavailable Interpretation: nonspecific ST-T wave lisa (T wave inversion lead III) - Radiology Data Radiology results: report reviewed (Chest x-ray), image reviewed (Chest x-ray) interpreted by me: Chest x-ray-no definite focal infiltrates, no pneumothorax [facility] [address] [place] [address] XRay Report Signed Patient: JOHN SAENZ MR#: [id number] : 1990 Acct:[id number] Age/Sex: 31 / F ADM Date: 04/04/21 Loc: [place] Attending Dr: Ordering Physician: SERAFIN SAWYER MD Date of Service: 04/04/21 Procedure(s): XR chest 1V ap Accession Number(s): [id number] cc: SERAFIN SAWYER MD Fluoro Time In Minutes: CHEST 1 VIEW 04/04/2021 5:02 PM INDICATION / CLINICAL INFORMATION: chest pain. COMPARISON: None available. FINDINGS: SUPPORT DEVICES: None. HEART / MEDIASTINUM: No significant abnormality. LUNGS / PLEURA: No significant pulmonary or pleural abnormality. No pneumothorax. ADDITIONAL FIN DINGS: No significant additional findings. IMPRESSION: 1. No acute findings. Signer Name: Bairon Farley MD Signed: 04/04/2021 5:12 PM Workstation Name: [id number] Transcribed By: TL Dictated By: Bairon Farley MD Electronically Authenticated By: Bairon Farley MD Signed Date/Time: 11/16 DD/ 10 TD/TT: Print Cancel - Differential Diagnosis Hypertensive urgency, ACS, pericarditis, GERD, PE Critical care attestation.: If time is entered above; I have spent that time in minutes in the direct care of this critically ill patient, excluding procedure time. ED Disposition Clinical Impression: Hypertension Disposition: 01 HOME / SELF CARE / HOMELESS Is pt being admited?: No Does the pt Need Aspirin: No Condition: Stable Instructions: Hypertension, Adult, Opil-mi-Purp, Managing Your Hypertension, Hypertension (ED) Additional Instructions: Return to the emergency department should you develop worsening symptoms, inability to tolerate food or liquids, high fever or any other concerns Prescriptions: amLODIPine 5 mg PO DAILY #90 tab Referrals: BEBETO DELUNA MD [Staff Physician] - 3-5 Days (Dr. Deluna is a primary physician. Please follow-up with him to be established as a patient) Time of Disposition: 21:12
[2021-04-04 16:19] LABS: Basophils % (Auto) 0.8 % (0.0-1.8); Eosinophils % (Auto) 0.2 % (0.0-4.3); Hematocrit 40.2 % (30.3-42.9); Hemoglobin 13.4 gm/dl (10.1-14.3); Lymphocytes % (Auto) 26.9 % (13.4-35.0); Mean Corpuscular HGB Conc 33 % (30-34); Mean Corpuscular Volume 84 fl (79-97); Monocytes # (Auto) 0.2 K/mm3 (0.0-0.8); Monocytes % (Auto) 6.4 % (0.0-7.3); Platelet Count 199 K/mm3 (140-440); Red Blood Count 4.77 M/mm3 (3.65-5.03); Red Cell Distribution Width 14.1 % (13.2-15.2)
[2021-04-04 16:48] LABS: BUN/Creatinine Ratio 13; Blood Urea Nitrogen 10 mg/dL (7-17); Calcium 9.6 mg/dL (8.4-10.2); Hemolysis Index 3
[2021-04-04 16:55] LABS: Free T4 (Free Thyroxine) 1.2 ng/dL (0.76-1.46)
[2021-04-04 16:57] LABS: Creatine Kinase MB < 1.0 ng/mL (0.0-4.0)
--- NOTE | 2021-04-04 17:16 | XRay Report ---
CHEST 1 VIEW 04/04/2021 5:02 PM INDICATION / CLINICAL INFORMATION: chest pain. COMPARISON: None available. FINDINGS: SUPPORT DEVICES: None. HEART / MEDIASTINUM: No significant abnormality. LUNGS / PLEURA: No significant pulmonary or pleural abnormality. No pneumothorax. ADDITIONAL FINDINGS: No significant additional findings. IMPRESSION: 1. No acute findings. Signer Name: Bairon Farley MD Signed: 04/04/2021 5:12 PM Workstation Name: [id number]
[2021-04-04 21:14] VITALS: BP 156/107
--- NOTE | 2021-04-08 08:35 | Electrocardiograph Report ---
[facility] Test Date: 2021-04-04 Test Time: 17:39:37 Pat Name: JOHN SAENZ Department: Room: Gender: F Dermatology Nurse: JEZ : 1990 Requested By: SERAFIN SAWYER Order Number: [id number] Reading MD: Josh Danielle Measurements Intervals [place] Rate: 87 P: 51 AK: 159 QRS: 10 QRSD: 84 T: 11 QT: 357 QTc: 430 Interpretive Statements Sinus rhythm No previous ECG available for comparison Electronically Signed On 04-08-2021 8:35:23 EST by Josh Danielle
== END 2021-04-04 21:40 | disposition home or self-care (01) ==
LOC: NM 15:19
DX: I10 Essential (primary) hypertension (principal)
CPT/HCPCS: 36415; 71045; 80048; 82550; 82553; 84439; 84443; 84484; 84703; 85025; 85379; 93005; 96374; 99284; J3490